=== PATIENT | female | born 1980 | race Caucasian/White ===

== ENCOUNTER 2018-01-11 08:54 | Outpatient (RCR) | payer OTHER, SELFPAY ==
--- NOTE | 2018-01-11 18:39 | MASS.EVAL ---
Massage Therapy Evaluation: Initial Evaluation Date: 01/11/2018 SUBJECTIVE: Roxie is a 37 year old female who was referred to the [facility] facility for a massotherapy evaluation by Dr. Jatin Smith with the diagnosis of neck and low back pain. Roxie presents today with the symptoms of neck and upper back pain and tension. She also has muscle tension in her low back, left thigh and hips. Roxie reports having a medical history chronic low back pain. She reports having minimal limitations during her daily activities. OBJECTIVE: Upon observation Roxie has poor posture with her head forward and shoulders forward from the neutral position in sitting and standing. After examination and palpation I found Roxie to have very high muscle tension with tenderness and myofascial restrictions in her sub occipitals, trapezius, rhomboids, scalenes, thoracic paraspinals. Her hips, left quadriceps, left ITB and lumbar region were also tight. The first treatment consisted of a one hour massage to her full body with myofascial release, muscle stripping, trigger point compression techniques, and cervical manual traction. ASSESSMENT: I feel that Roxie is a good candidate for massotherapy at this time. She had a favorable response to the first treatment with reduction in her muscle aches, pain and tension. She also had improvement in her cervical flexibility. PLAN: The plan of care was reviewed with the patient. The patient is to be seen on as needed basis for a total of ten sessions with the recommendation of once every four weeks for a one hour treatment.
--- NOTE | 2018-08-20 15:52 | DS.PCM_ITS ---
Massage Therapy Discharge Summary: Discharge Date: 08/20/2018 Roxie was seen for a massotherapy evaluation on 01/11/2018 with the diagnosis of back and neck pain. She was treated with one session of massage therapy consisting of deep pressure soft tissue techniques, myofascial release and trigger point compression to her cervical, thoracic, lower back, upper extremities and hips. Roxie responded well to the therapy by reporting decreased tension and pain throughout her neck, shoulders, lower back and hips. Her goals for therapy were not met due to no follow up treatment sessions performed. At this time this patient is being discharged from our care at [facility] facility.
== END 2018-01-11 19:00 | disposition home or self-care (01) ==
LOC: MASS 08:54
PROVIDERS: Family Provider Family Medicine; PCP Family Medicine; Visit Provider Family Medicine
DX: M54.9 Dorsalgia, unspecified (principal); G89.29 Other chronic pain
CPT/HCPCS: 97124

== ENCOUNTER → 2019-02-26 17:17 | Outpatient (CLI) | payer OTHER, SELFPAY ==
[2019-02-26 10:34] VITALS: BMI 23.6
[2019-03-22 11:57] LABS: HPV APTIMA, High Risk Negative (Negative)
== END ==
PROVIDERS: Family Provider Family Medicine; PCP Family Medicine; Referring Provider Obstetrics & Gynecology; Visit Provider Obstetrics & Gynecology
DX: Z12.4 Encounter for screening for malignant neoplasm of cervix (principal)
CPT/HCPCS: 87624; 88175; G0145

== ENCOUNTER 2019-02-28 08:03 | Day surgery (SDC) | payer OTHER, SELFPAY ==
[2019-02-26 10:34] VITALS: BMI 23.6
--- NOTE | 2019-02-28 07:32 | PCM.HPOB.BLA ---
- Problem List (1) Missed Status: Acute History and Physical Date of Admission: 02/28/19 Intake Vital Signs 02/26/19 Body Mass Index (BMI) 23.6 02/26/19 Height 5 ft 9 in 02/26/19 Blood Pressure 102/70 Intake Visit Reasons: NOB - LMP 12/17 Chief Complaint: NEW OB Solution Advisor Required: No Is patient in pain?: No Allergies No Known Allergies Allergy (Verified 02/26/19 09:57) Medications omega-3 fatty acids 1,000 mg capsule 1,000 mg PO DAILY 02/26/19 [History Confirmed 02/26/19] vitamin#30 30 mg iron-10 mg iron-folic acid 1 mg-omg3 capsule cap PO cap 02/26/19 [History] Last Menstral Period: 12/17/18 Zika: Zika virus screening: Negative : No PFSH PFSH Medical History (Updated 02/26/19 @ 10:40 by Keturah Vega MD) Anxiety (Acute) History of abnormal cervical Pap smear (Acute) Surgical History (Updated 02/26/19 @ 09:59 by Tasha Ordonez) H/O LEEP (Acute) History of placement of ear tubes (Acute) Family History (Updated 02/26/19 @ 09:59 by Tasha Ordonez) Mother Cancer of kidney Social History (Updated 02/26/19 @ 11:42 by Keturah Vega MD) Smoking Status: Former smoker alcohol intake: never substance use type: does not use caffeine: Yes what type of physical activity do you participate in: walking seatbelt use: always do you feel safe at home: Yes additional social history: Lyle Lam 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 upon examination she has a confirmed 9 week miscarriage. she denies any bleeding or cramping. OB Visit Comments: ultrasound done CRL measuring 9 weeks no FHT seen. miscarriage confirmed. Estimated Due Date: 09/23/19 Menstrual History Last Menstral Period: 12/17/18 Reported LMP: definite Normal amount/duration: Yes On hormonal BC at conception: No hCG+: 01/18/19 Antepartum Record Genetic Screening: Congenital Heart Defect: Other, Neural Tube Defect: Other, Hemoglobinopathy Or Carrier: Other, Cystic Fibrosis: Other, Chromosome Abnormality: Other, Ricky-Sachs: Other, Hemophilia: Other, Intellectual Disability/Autism: Other, Recurrent Loss/Stillbirth: Other, Other Structural Defect: Other, Other Genetic Disease: Other, Maternal Metabolic Disorder: Other Infection History: Live with someone with TB or Exposed to TB: No, Patient or Partner has history of Genital Herpes: Yes, Rash or Viral illness since last mentrual period: No, Prior GBS-Infected child: No, History of STD: No, HIV Infection: No, History of Hepatitis: No, Recent travel outside of [place]: No, Concern for Hep exposure: No, Varicella immune: Yes Medical History Medical History: Positive: Psychiatric, Seasonal allergies, 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), History of abnormal pap (yes), Negative: Diabetes, Hypertension, Heart disease, Auto-immune disorder, Kidney disease/UTI, Neurologic/epilepsy, Depression/ depression, Hepatitis/liver disease, Varicosities/phlebitis, Thyroid dysfunction, Trauma/domestic violence, History of blood transfusions, D (Rh) Sensitized, Pulmonary (e.g.,TB,Asthma), Drug/latex allergies/reactions, Breast, Operations/hospitalizations, Anesthetic complications, Uterine anomaly/odin, Infertility, Anti-retroviral treatment, Relevant family history, Other ACOG First Trimester First Trimester: Desire for , Alcohol, Tobacco Cessation, Illicit/Recreational Drug/Substance Use, Intimate Partner Violence, Barriers to care, Unstable Housing, Communication Barriers, Environmental/Work Hazards, Anticipated Course of Care, Nurtrition and weight gain, Toxoplasmosis Precations, Use of Any medications, Sexual activity, Exercise, Dental Care, Sauna/Hot tub use, Seat Belt use, Childbirth classes/Hospital facilities, , Travel, Indications for US and Screening for Aneuploidy ROS Const Reports system reviewed and no additional complaints, except as docu, Reports fatigue, Denies fever(s) Eyes Reports system reviewed and no additional complaints, except as docu ENT Reports system reviewed and no additional complaints, except as docu Card Denies chest pain, Denies shortness of breath Resp Reports system reviewed and no additional complaints, except as docu, Denies cough, Denies shortness of breath GI Denies abdominal pain, Reports nausea Reports system reviewed and no additional complaints, except as docu Musc Reports system reviewed and no additional complaints, except as docu Skin/Breast Reports system reviewed and no additional complaints, except as docu, Reports breast pain Neuro Yes system reviewed and no additional complaints, except as docu Psych Reports system reviewed and no additional complaints, except as docu Endo Reports system reviewed and no additional complaints, except as docu, Reports fatigue Everardo/Lymph Reports system reviewed and no additional complaints, except as docu Aller/Immun Reports system reviewed and no additional complaints, except as docu Exam Const General: healthy appearing, comfortable, no acute distress Orientation: alert [facility] Head: normal to inspection, normocephalic, atraumatic Ears: hearing grossly normal bilaterally, external ears normal Nose: external nose normal, nares normal Mouth: oral mucosae normal Teeth and gingiva: dentition normal Eyes General: appearance normal, both eyes and all related structures Neck Neck: normal visual inspection, no lymphadenopathy, supple Thyroid: thyroid normal Chest Chest palpation & inspection: normal inspection of the chest Breast inspection: normal inspection of the breasts, normal inspection of the axillae Breast palpation: normal palpation of the breasts, normal palpation of the axillae Resp Effort & Inspection: normal respiratory effort GI Inspection: normal to inspection Palpation: soft, no hepatosplenomegaly General: bladder normal to palpation External Female Exam: normal external appearance, normal appearance of the urethra Urethra: normal appearance of the urethra Speculum Exam - Vagina: normal appearance of the vagina, normal vaginal discharge Speculum Exam - Cervix: normal appearance of the cervix Bimanual Exam- Vagina & Uterus: normal bimanual exam, bladder normal to palpation, uterus non-tender, other Bimanual Exam- Adnexa, other: adnexae non-tender Skin General: no rashes or lesions noted Neuro Motor: muscle tone normal throughout, no movement abnormalities noted Extrem General: normal to inspection, full ROM Assessment & Plan Problems 1. Herpes simplex vulvovaginitis A60.04 Acyclovir at 36 weeks 2. Mother currently breast-feeding 3. 10 weeks gestation of Z3A.10 declines genetic, carrier and NTD at this time 4. Multigravida of advanced maternal age in first trimester O09.521 genetic counseling discussed- growth US at 36 weeks 5. Supervision of high risk , antepartum O09.90 DARYN 09/23/19 PC Vera Spouse Chad (2 children) 6. History of loop electrosurgical excision procedure (LEEP) of cervix affecting in first trimester O34.41; Z98.890 term delivery afterwards, discussed CL screening- desires check only at routine anatomy scan. 7. Cervical dysplasia N87.9 8. Missed O02.1 Plan proceed with suction d and c. will schedule. Orders Orders: Antibody Screen Today Z34.90 Type & Screen Today Z34.90 HIV - [facility] Today Z34.90 Rubella IgG Today Z34.90 CBC W/Diff, Automated Today Z34.90 Culture, Urine Today Z34.90 CT/NG [facility] BY PCR Today Z34.90 Rapid Plasmin Reagin (RPR) Today Z34.90 Hepatitis Be Ag Today Z34.90 Supplemental Info ACOG book given and patient encouraged to read about nutrition, exercise, weight gain, and food avoidance in . Coding Level of Care Code OB Routine Diagnoses Herpes simplex vulvovaginitis A60.04 ??Herpes simplex infection site: vulvovaginitis Mother currently breast-feeding 10 weeks gestation of Z3A.10 ??Weeks of gestation: 10 weeks Multigravida of advanced maternal age in first trimester O09.521 ??Trimester: first trimester Supervision of high risk , antepartum O09.90 History of loop electrosurgical excision procedure (LEEP) of cervix affecting in first trimester O34.41; Z98.890 ??Trimester: first trimester Cervical dysplasia N87.9 Missed O02.1 UPDATE- I have seen the patient and performed any clinically relevant updates to the history and physical exam. Keturah Vega MD
[2019-02-28 08:23] VITALS: BP 104/59; PULSE 68; RESP 14; TEMP 36.4; O2SAT 99; BMI 24.2
[2019-02-28] MEDS: Doxycycline 100 MG CAPSULE PO (08:33)
[2019-02-28 08:36] LABS: Hematocrit 35.5 % (37-47); Mean Corp Hgb Conc 33.8 g/gl (32-36); Mean Corpuscular Volume 85.7 fL (81-99); Mean Platelet Vol. 10.4 fl (6.2-12.0); Platelet Count 222 K/mm3 (150-450); RBC Distribution Width CV 12.8 % (11.6-14.6); RBC Distribution Width SD 40.3 fl (35.1-43.9); Red Blood Count 4.14 M/mm3 (4.2-5.4); White Blood Count 5.3 K/mm3 (4.4-11.0)
[2019-02-28 08:38] LABS: Scan Indicated on CBC? Y/N NO
--- NOTE | 2019-02-28 09:30 | POC_PTH ---
PATIENT: MILLY DICKERSON LOC: [facility] U#:[id number] AGE/SX: 38/F ROOM: RE02/28/[address]: Dr. Keturah Vega MD : 1980 BED: DIS: 02/28/2019 SPEC #: [id number] RECD: 02/28/19 11:17 STATUS: MILTON ADEN #: [id number] SAEED: 02/28/19 09:[address]: Keturah Vega DEPT: SURGICAL PATHOLOGY RECD BY: Jackson Sexton ENTERED: 02/28/19 11:34 SP TYPE: PROD CONC OTHR DR: Dr. Jatin Smith, Tissues: Product of conception, NOS Procedures: Surgery Specimen Level IV HEADER OPERATION: dilation and curettage, suction PRE-OP DIAGNOSIS: Missed TISSUE SUBMITTED: Products of conception MICROSCOPIC DIAGNOSIS Products of conception: Immature, edematous chorionic villi, decidual tissue with implantation site and gestational pattern endometrium present, compatible with products of conception. CE:edith 03/01/19 MICROSCOPIC DESCRIPTION Slides are reviewed. GROSS DESCRIPTION Received in fixative is one container labeled with the patient's name and designated products of conception. The specimen consists of multiple pinkish-taylor soft tissue fragments mixed with membranous tissue that in aggregate measure 3 x 2 x 0.9 cm. No fetus or parts are grossly identified. Laboratory Equipment Installer sections are submitted in three cassettes. / FA:edith 02/28/19 TC:5 CPT: 25778
--- NOTE | 2019-02-28 10:27 | PCM.OPRPT ---
Problem List (1) Missed Status: Acute Report of Operation Date of Procedure: 02/28/19 Pre-Operative Diagnosis: Missed AB 10 weeks Post-Operative Diagnosis: same Surgery/Procedure Performed:: Suction D&C Description of Surgical Findings:: 9-week size pole with no heartbeat 10 weeks gestational age clinically by LMP Type of Anesthesia:: Local MAC Special Medications: none Specimen's removed: Products of conception Drains: none Estimated Blood Loss (mL): 50 Fluids Replaced: Crystalloid Description of Procedure: Patient was taken to the operating room and placed under MAC local anesthesia. She was prepped and draped in the normal sterile fashion the dorsal lithotomy position. Bladder was drained of clear urine and anterior lip of the cervix was grasped and the uterus sounded to 8 cm. Cervix was progressively dilated to allow passage of an 8 millimeter suction curette. Progressive passes were made removing the retained products of conception without complication. Sharp curettage confirmed complete removal of the retained products. All instruments were removed from the vagina and excellent hemostasis was noted and the patient was taken to recovery in stable condition. Grafts/Implants Used: none - Complications none
--- NOTE | 2019-02-28 10:29 | DCINST_ITS ---
Discharge Diet: No Restrictions Discharge Activity: Return to Normal Activity, May Shower, May Take a Tub Bath Allergies/Adverse Reactions: Allergies No Known Allergies Allergy (Verified 02/27/19 14:51) Medications to take at Discharge omega-3 fatty acids 1,000 mg capsule 1,000 mg PO DAILY 02/26/19 vitamin#30 30 mg iron-10 mg iron-folic acid 1 mg-omg3 capsule 1 cap PO DAILY cap 02/26/19 Primary Care Physician: Jatin Smith DO [Primary Care Provider] - Test Results: Test results from this visit will be discussed in further detail at your follow- up appointment, if applicable. Please Follow Up With: Keturah Vega MD - [phone]
[2019-02-28 10:35] VITALS: BP 104/59; BP 87/54; PULSE 68; RESP 16; TEMP 36.4; O2SAT 99
[2019-02-28 10:40] VITALS: BP 104/59; BP 97/53; PULSE 61; RESP 16; O2SAT 97
[2019-02-28 10:46] VITALS: BP 104/59; BP 87/50; PULSE 63; RESP 16; O2SAT 96
[2019-02-28 10:50] VITALS: BP 104/59; BP 87/57; PULSE 59; RESP 16; O2SAT 97
[2019-02-28 11:33] VITALS: BP 104/59
== END 2019-02-28 11:38 | disposition home or self-care (01) ==
LOC: SDC 08:04 → AC 08:04
PROVIDERS: Family Provider Family Medicine; PCP Family Medicine; Referring Provider Obstetrics & Gynecology; Visit Provider Obstetrics & Gynecology
PROC: (CPT 59820; principal; 2019-02-28 09:15)
DX: O02.1 Missed abortion (principal); A60.04 Herpesviral vulvovaginitis; Z3A.10 10 weeks gestation of pregnancy; N87.9 Dysplasia of cervix uteri, unspecified; Z98.890 Other specified postprocedural states; Z87.891 Personal history of nicotine dependence
CPT/HCPCS: 59820; 36415; 85027; 86850; 86900; 88305; J7120; J2405

== ENCOUNTER → 2019-05-15 | Outpatient (CLI) | payer OTHER, SELFPAY ==
[2019-03-26 12:00] VITALS: BMI 24.2
--- NOTE | 2019-05-15 14:02 | VDLE_ITS ---
Reason For Study: PAIN/ SWELLING Procedure LEFT Exam performed in department. GSV is normal. A preliminary report was called and/or faxed CFV is compressible, spontaneous, phasic, to Dr Smith. competent, and demonstrates normal augmentation. FV is compressible, spontaneous, phasic, competent and demonstrates normal augmentation. POP V is compressible, spontaneous, phasic, competent and demonstrates normal augmentation. T/P Trunk is compressible. PTV is compressible. LT PerV is compressible. There is a nonvascularized echogenic structure measuring 3.78 x 1.9 cm noted in the Popliteal space extending to the posterior proximal calf. Interpretation Summary Deep veins of the left lower extremity are patent and compressible segmentally. There is no evidence of left lower extremity deep vein thrombosis. Valvular competence appears intact within the proximal deep venous system on the left . The left great saphenous vein appears patent and compressible segmentally. Mildly enlarged lymph nodes are noted near the left groin, for which clinical correlation is advised. A non-vascular, hypoechoic structure is noted in the left popliteal space and proximal posterior calf, measuring 3.78 cm x 1.9 cm. This may represent a popliteal cyst. Clinical correlation is advised. Ordering Physician: Jatin Smith Referring Physician: Jatin Smith Performed By: Dior Schrader, RDCS, RVT
== END | disposition home or self-care (01) ==
LOC: CVS 14:01
PROVIDERS: Family Provider Family Medicine; PCP Family Medicine; Referring Provider Family Medicine; Visit Provider Family Medicine
DX: M79.605 Pain in left leg (principal)
CPT/HCPCS: 93971

== ENCOUNTER → 2019-06-04 | Outpatient (CLI) | payer OTHER, SELFPAY ==
[2019-03-26 12:00] VITALS: BMI 24.2
--- NOTE | 2019-06-04 11:30 | MRI_ITS ---
STUDY: MRI LEFT KNEE REASON FOR EXAM: Female, 39 years old. Knee pain and swelling TECHNIQUE: Standardized fat and water weighted pulse sequences were obtained in all 3 orthogonal planes. COMPARISON: None. FINDINGS: Normal medial meniscus. Normal hyaline cartilage of the medial femorotibial compartment. Normal medial femoral condyle and tibial plateau. Normal medial collateral ligamentous complex (MCL). Normal distal semimembranosus, gracilis and semitendinosus tendons. Normal lateral meniscus. Normal hyaline cartilage of the lateral femorotibial compartment. Normal lateral femoral condyle and tibial plateau. Normal proximal tibiofibular articulation. Normal lateral collateral (fibular) ligament. Normal popliteus tendon. Normal biceps femoris tendon. Normal anterior cruciate ligament (ACL). Normal posterior cruciate ligament (PCL). Normal congruent patellofemoral articulation. Normal hyaline cartilage of the patellofemoral compartment. Normal medial and lateral patellar retinaculum. Normal quadriceps tendon. Normal patellar tendon. Normal Hoffa's fat pad. There is a moderate volume joint effusion. 3 x 6 cm Madrigal cyst. The soft tissues are unremarkable. The otherwise visualized osseous structures are unremarkable. MRI/Lower Ext Joint Only (Routine) IMPRESSION: Moderate joint effusion with a large Madrigal's cyst but no internal derangement. Specifically, no meniscus tear. Electronically Signed: Tomer Tracy MD at 16:43 EDT Tel , Service support ,
== END | disposition home or self-care (01) ==
LOC: MRI 11:06
PROVIDERS: Family Provider Family Medicine; PCP Family Medicine; Referring Provider Family Medicine; Visit Provider Family Medicine
DX: M25.462 Effusion, left knee (principal); M25.562 Pain in left knee
CPT/HCPCS: 73721

== ENCOUNTER 2019-07-16 09:30 | Outpatient (RCR) | payer OTHER, SELFPAY ==
[2019-03-26 12:00] VITALS: BMI 24.2
--- NOTE | 2019-07-05 12:43 | HP.PTEVAL ---
Patient's Visit Information MILLY DICKERSON is a 39 year old F referred to Physical Therapy by Jatin Smith DO with a diagnosis of L knee pain. Date of Evaluation: 06/14/19 Physical Therapist: Modesto Hankins DPT - Visit Plan Frequency: 2x /Week Duration: 4-6 Weeks Plan: Start with US to popliteal region, quad/HS strengthening as tolerated. Progess back to gym exercises as tolerated. - Subjective Findings: Pt. is here today for her initial evaluation with diagnosis of of L knee pain. Pt. reports having incrased L knee joe or ~4 months now, but was getting better until moving wrong and started having pain again. Pt. did have an MRI which showed no meniscus tearing, but did have a large coker's cyst. Pt. reports having increased pain with walking, standing and any bending, squating motions. Pt. is able tosleep fairly comfortable. Pt. is going to follow up with an orhopedic next week. She denies N/T in either LE. Pt. reports no constant pain, but comes and goes and does have some days that are decent. 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 Pt. is hopeful to reduce her symptoms to get back to all recreational and work activities witout increase in symptoms. - Pain L knee Pain Intensity (Out of 10): 2 Pain Intensity Range: 0, 6 Comment: popliteal region - Objective POSTURE: Pt. has good posture in stance. Pt. has TKE in bilateral LEs with equal wt. shifting. SHe does have some increasein pain with L TKE. PALPATION: Pt. has increased pain at posterior/medial aspect of her L knee. Pt. has no pain along HS tendon/muscle belly. Pt. has marked edema in LLE (popliteal region). NEURO: normal throughout. ROM: R knee 0-0-140deg. L knee 0-0-128deg increased pain with end range flexion and extension. Pt. has normal HS and hip flexor length. MMT: RLE- 5/5 throughout. LLE- ankle 5/5 throughout; knee- ext 5-/5, flexion 4+/5, hip- 5/5 throughout. Core strength- fair. GAIT: Pt. ambulates with normal pattern, patient avoid TKE on LLE. STAIRS: normal no HR. - Special Tests L Knee Paula - Meniscus: Negative L Knee Apley - Meniscus: Negative L Knee Disco Test - Meniscus: Negative L Knee Anterior Drawer - ACL: Negative L Knee Valgus - MCL: Negative L Knee Varus - LCL: Negative - Goals Goal 1:: Pt. to be I with HEP. Goal Time Frame: 4-6 Weeks Goal 2:: Pt. to have full L knee ROM withotu increase in symptoms. Goal Time Frame: 4-6 Weeks Goal 3:: Pt. to ambulate unlimited distances without increase in symptoms. Goal Time Frame: 4-6 Weeks Goal 4:: Pt. to negotiate steps without increase in symptoms with reciprocal pattern. Goal Time Frame: 4-6 Weeks Goal 5:: Pt. to have 5/5 LLE strength without increase in symptoms. Goal Time Frame: 4-6 Weeks Goal 6:: Pt. to resume all gym and work activities without increase in symptoms. Goal Time Frame: 4-6 Weeks - Rehabilitation Potential Physical Therapy Diagnosis: Pt. has signs and symptoms consistent with L knee pain. Pt. has imaging showing large coker's cyst. Pt. would benefit from PT to reduce inflammation Rehabilitation Potential: Excellent - Anticipated Interventions Patient/Client Instruction: Educate patient on: Condition, Plan of Care, Risk Factors, Benefits of Fitness Program For the Purpose of:: To facilitate caregiver knowledge, To improve self management, To prevent re-injury, To improve ability to perform tasks related to life management, To improve tolerance to ADL's Therapeutic Exercise to Include: Strength training, Power training, Postural training, Flexibilty training, Passive ROM, Active ROM For the Purpose of:: To decrease pain, To increase ROM, To improve nutrient delivery to tissue, To increase oxygenation perfusion, To improve muscle performance and motor function, To improve ability to perform ADL's, To improve health of tissue, To decrease soft tissue restriction, To increase flexibility/ROM, To improve endurance Manual Therapy Techniques to Include: Mobilization, Functional dry needling, Soft tissue mobilization For the Purpose of:: To decrease pain, To decrease swelling/inflammation, To increase ROM, To improve nutrient delivery to tissue, To increase oxygenation perfusion, To improve muscle performance and motor function Ultrasound (thermal/non thermal): Yes For the Purpose of:: To decrease pain, To increase ROM, To improve nutrient delivery to tissue, To improve muscle performance and motor function Thank you for the opportunity to evaluate your patient. For Medicare and Medicare HMO plans, please review the plan of care and approve it. It will need to be FAXED BACK to us at [phone] for Medicare purposes. For Medicare only, by signing this I certify the plan of care. Please let me know if there are questions or concerns regarding this plan of care. Physician Signature: Date:
--- NOTE | 2019-12-24 08:48 | HP.PT.NRP ---
MILLY DICKERSON was seen in my office for initial evaluation on 06/14/19. The following Plan of Care was established for this patient: Initial Frequency: 2x /Week Initial Duration: 4-6 Weeks Patient/Client Instruction: Educate patient on: Condition, Plan of Care, Risk Factors, Benefits of Fitness Program For the Purpose of:: To facilitate caregiver knowledge, To improve self management, To prevent re-injury, To improve ability to perform tasks related to life management, To improve tolerance to ADL's Therapeutic Exercise to Include: Strength training, Power training, Postural training, Flexibilty training, Passive ROM, Active ROM For the Purpose of:: To decrease pain, To increase ROM, To improve nutrient delivery to tissue, To increase oxygenation perfusion, To improve muscle performance and motor function, To improve ability to perform ADL's, To improve health of tissue, To decrease soft tissue restriction, To increase flexibility/ROM, To improve endurance Manual Therapy Techniques to Include: Mobilization, Functional dry needling, Soft tissue mobilization For the Purpose of:: To decrease pain, To decrease swelling/inflammation, To increase ROM, To improve nutrient delivery to tissue, To increase oxygenation perfusion, To improve muscle performance and motor function Ultrasound (thermal/non thermal): Yes For the Purpose of:: To decrease pain, To increase ROM, To improve nutrient delivery to tissue, To improve muscle performance and motor function This patient was last seen in our office 07/16/19. Pertinent comments regarding their Physical therapy will appear below: Pt. was seen for her knee pain. Pt. tolerated US and stretcing. Pt. was back to most of her exercises and work classes with minimal issues. I talked to her and she did cont. to have some tightness in the back of her knee, but no pain. Pt. will be DC from PT at this point in time. At this point I will be discontinuing this patient from physical therapy. I would be happy to see this patient again in the future if found appropriate by the physician. Thank you! Modesto Hankins, KEITHT
== END 2019-07-16 19:00 | disposition home or self-care (01) ==
LOC: PT 09:30
PROVIDERS: Family Provider Family Medicine; PCP Family Medicine; Referring Provider Family Medicine; Visit Provider Family Medicine
DX: M25.462 Effusion, left knee (principal); M79.605 Pain in left leg
CPT/HCPCS: 97035; 97110; 97161

== ENCOUNTER 2019-08-26 19:45 | Outpatient (RCR) | payer OTHER, SELFPAY ==
--- NOTE | 2018-10-05 07:42 | MASS.EVAL ---
Massage Therapy Evaluation: INITIAL EVALUATION: DATE: 09/17/18 PT NAME: MILLY DICKERSON : 1980 V#: [id number] REFERRING PHYS: DR. 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 SHE WAS REFERRED TO [facility] FOR A MASSOTHERAPY EVALUATION BY DR. GARRISON WITH A DIAGNOSIS OF NECK AND BACK PAIN. SHE PRESENTS TODAY WITH THE SYMPTOMS OF LEFT HIP PAIN AND TENSION IN THE NECK AND SHOULDERS. THE HIP PAIN HAD BEEN PRESENT FOR A WEEK. THE SYMPTOMS COMMENCED DUE TO TEACHING CLASSES, SHE COULD FEEL HER BACK GO OUT POST A CLASS. MILLY RATES HER OVERALL HEALTH TO BE IN GREAT CONDITION WITH A SLIGHT LIMITATION TO HER DAILY ACTIVITIES. MILLY DID NOT LIST ANY MEDICATIONS AT THIS TIME. OBJECTIVE: THE FIRST TREATMENT CONSISTED OF A DEEP TISSUE, UPPER BODY MASSAGE. I FOCUSED ON UPPER TRAPEZIUM, LEVATOR, SUBOCCIPITALS,RHOMBOIDS, SCALENES, QL'S, GLUTES, IT BAND, AND HAMSTRINGS. TRIGGER POINT THERAPY WAS PERFORMED ALONG WITH DEEP TISSUE AND CAMEROONIAN MASSAGE. ASSESSMENT: THE MUSCLE TENSION WAS HIGH IN THE NECK AND LOW BACK. LEFT SIDE SEEMED WORSE THAN THE RIGHT SIDE. THE MOST TENDERNESS PLACES WERE THE LEFT QL'S, LEFT GLUTEUS MEDIUS, LEFT IT BAND, AND RIGHT SCALENES. OVERALL, I FELT THERE WAS GOOD RELEASE IN THE LEFT HIP AND STRESS LEVEL. THE PATIENT REPORTED FEELING LESS PAIN IN HIP POST THE MASSAGE. I FEEL MILLY IS A GREAT CANDIDATE FOR MASSOTHERAPY AT THIS TIME. PLAN: THE PLAN OF CARE WAS REVIEWED WITH THE PATIENT. THE PATIENT IS TO BE SEEN ON A MONTHLY BASIS FOR A TOTAL OF 10 VISITS FOR A ONE HOUR SESSIONS OF MASSOTHERAPY.
--- NOTE | 2018-10-05 07:54 | MASS.EVAL_ITS ---
Massage Therapy Evaluation: INITIAL EVALUATION: DATE: 09/17/18 PT NAME: MILLY DICKERSON : 1980 V#: [id number] REFERRING PHYS: DR. 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 SHE WAS REFERRED TO [facility] FOR A MASSOTHERAPY EVALUATION BY DR. GARRISON WITH A DIAGNOSIS OF NECK AND BACK PAIN. SHE PRESENTS TODAY WITH THE SYMPTOMS OF LEFT HIP PAIN AND TENSION IN THE NECK AND SHOULDERS. THE HIP PAIN HAD BEEN PRESENT FOR A WEEK. THE SYMPTOMS COMMENCED DUE TO TEACHING CLASSES, SHE COULD FEEL HER BACK GO OUT POST A CLASS. MILLY RATES HER OVERALL HEALTH TO BE IN GREAT CONDITION WITH A SLIGHT LIMITATION TO HER DAILY ACTIVITIES. MILLY DID NOT LIST ANY MEDICATIONS AT THIS TIME. OBJECTIVE: THE FIRST TREATMENT CONSISTED OF A DEEP TISSUE, UPPER BODY MASSAGE. I FOCUSED ON UPPER TRAPEZIUM, LEVATOR, SUBOCCIPITALS,RHOMBOIDS, SCALENES, QL'S, GLUTES, IT BAND, AND HAMSTRINGS. TRIGGER POINT THERAPY WAS PERFORMED ALONG WITH DEEP TISSUE AND SLOVAK MASSAGE. ASSESSMENT: THE MUSCLE TENSION WAS HIGH IN THE NECK AND LOW BACK. LEFT SIDE SEEMED WORSE THAN THE RIGHT SIDE. THE MOST TENDERNESS PLACES WERE THE LEFT QL'S, LEFT GLUTEUS MEDIUS, LEFT IT BAND, AND RIGHT SCALENES. OVERALL, I FELT THERE WAS GOOD RELEASE IN THE LEFT HIP AND STRESS LEVEL. THE PATIENT REPORTED FEELING LESS PAIN IN HIP POST THE MASSAGE. I FEEL MILLY IS A GREAT CANDIDATE FOR MASSOTHERAPY AT THIS TIME. PLAN: THE PLAN OF CARE WAS REVIEWED WITH THE PATIENT. THE PATIENT IS TO BE SEEN ON A MONTHLY BASIS FOR A TOTAL OF 10 VISITS FOR A ONE HOUR SESSIONS OF MASSOTHERAPY.
--- NOTE | 2019-08-29 06:57 | MASS.DISCH ---
Massage Therapy Discharge Summary: DATE: 08/29/2019 V#: [id number] PT NAME: MILLY DICKERSON : 1980 REF PHYS: DR. GARRISON THE PATIENT WAS SEEN FOR MASSOTHERAPY EVALUATION ON 09/17/2018 WITH A DIAGNOSIS OF BACK AND NECK PAIN. THE PATIENT WAS TREATED WITH 10 SESSIONS OF MASSAGE CONSISTING OF UPPER BODY DEEP TISSUE MASSAGE. HER GOALS OF TREATMENT WERE MET AND SHE REPORTED STAYING HEALTHY THIS YEAR WITH 10 SESSIONS OF MASSAGE THERAPY. AT THIS TIME I AM DISCHARGING THE PATIENT FROM OUR CARE AT THE [facility].
== END 2019-08-26 19:46 | disposition home or self-care (01) ==
LOC: MASS 19:45
PROVIDERS: Family Provider Family Medicine; PCP Family Medicine; Referring Provider Family Medicine; Visit Provider Family Medicine
DX: M54.9 Dorsalgia, unspecified (principal); G89.29 Other chronic pain
CPT/HCPCS: 97124

== ENCOUNTER → 2020-05-07 16:43 | Outpatient (CLI) | payer OTHER, SELFPAY ==
[2020-05-07 09:25] VITALS: BMI 24.2
[2020-05-11 03:07] LABS: Chlamydia By Nucleic Acid AMP Negative (Negative)
[2020-05-11 07:54] LABS: Gonococcus By Nucleic Acid AMP Negative (Negative)
[2020-05-14 05:34] LABS: HPV APTIMA, High Risk Negative (Negative)
== END ==
PROVIDERS: PCP Family Medicine; Visit Provider Obstetrics & Gynecology
DX: Z12.4 Encounter for screening for malignant neoplasm of cervix (principal)
CPT/HCPCS: 87491; 87591; 87624; 88175; G0145

== ENCOUNTER → 2020-05-19 15:38 | Outpatient (CLI) | payer OTHER, SELFPAY ==
[2020-05-07 09:25] VITALS: BMI 24.2
[2020-05-19 16:49] LABS: Basophil# 0.03 X10^3/uL; Basophil% 0.4 % (0-1); Eosinophils% 1.2 % (0-5); Hematocrit 35.1 % (37-47); Hemoglobin 11.7 g/dL (12.0-15.0); Lymphocyte % 23.5 % (19-41); Mean Corp Hgb Conc 33.3 g/dL (32-36); Monocyte# 0.36 X10^3/uL; Monocyte% 4.2 % (0-10); NRBC Flagged by Analyzer 0 % (0-5); Neutrophil # 5.98 X10^3/uL (2.7-7.7); Neutrophil % 70.2 % (47-70); Platelet Count 272 K/mm3 (150-450); RBC Distribution Width CV 12.2 % (11.6-14.6); White Blood Count 8.5 K/mm3 (4.4-11.0)
[2020-05-19 16:52] LABS: NATERA MAILED SPECIMEN
[2020-05-19 17:00] LABS: Amphetamine Urine VISTA NEGATIVE (<1000 ng/mL); Barbiturate Urine VISTA NEGATIVE (< 200 ng/mL); Benzodiazepine Urine VISTA NEGATIVE (< 200 ng/mL); Cocaine Urine VISTA NEGATIVE (< 300 ng/mL); Ecstacy Urine VISTA NEGATIVE (< 500 ng/mL); Methadone Urine VISTA NEGATIVE (< 300 ng/mL); PCP Urine VISTA NEGATIVE (< 25 ng/mL); THC Urine VISTA NEGATIVE (< 50 ng/mL); Vista UDS pH Range 6
[2020-05-20 09:17] LABS: HIV - WCH Non-Reactive (Nonreactive); Hepatitis B Surface Antigen Non-Reactive (Nonreactive); Hepatitis C Antibody Non-Reactive (Nonreactive); Rubella IgG > 500.0 IU/mL
[2020-05-21 04:31] LABS: Rapid Plasmin Reagin (RPR) NONREACTIVE (NONREACTIVE)
== END ==
PROVIDERS: PCP Family Medicine; Referring Provider Obstetrics & Gynecology; Visit Provider Obstetrics & Gynecology
DX: Z34.90 Encounter for supervision of normal pregnancy, unspecified, unspecified trimester (principal)
CPT/HCPCS: 36415; 80307; 85025; 86592; 86703; 86762; 86803; 86850; 86900; 86901; 87086; 87088; 87340

== ENCOUNTER → 2020-07-23 15:16 | Outpatient (CLI) | payer OTHER, SELFPAY ==
[2020-06-04 11:03] VITALS: BMI 24.2
[2020-06-30 11:43] VITALS: BMI 25.2
--- NOTE | 2020-07-23 15:24 | US_ITS ---
STUDY: SECOND AND THIRD TRIMESTER OBSTETRICAL ULTRASOUND REASON FOR EXAM: Female, 40 years old ANATOMY SCREENING LMP: TECHNIQUE: Transabdominal TECHNICAL QUALITY: Adequate. PRIOR ULTRASOUND: None. FINDINGS: There is a single intrauterine fetus. The fetus is in a breech presentation. There is demonstrated cardiac activity with a heart rate of 151 bpm. There is a normal amniotic fluid volume. The largest amniotic fluid pocket measures 5.2 cm.. The placenta is anterior and not low-lying There are Grade 0 placental changes. The cervix measures 4.1 cm in length. The bilateral adnexal regions are normal. BIOMETRY: BPD: 4.39 cm: 19 weeks, 1 days HC: 16.8 cm: 19 weeks, 3 days AC: 14.65 cm: 19 weeks, 6 days FL: 3.04 cm: 19 weeks, 2 days CI: 0.74 FL/BPD: 0.69 FL/HC: FL/AC: 0.21 HC/AC: 1.15 age by current US: 19 weeks, 2 days. DARYN by current US: 12/15/2020. Estimated weight: grams, +/- grams, %. Age by LMP: 19 weeks, 5 days. DARYN by LMP: 12/12/2020. ANATOMY: Cranium: Normal lateral ventricles. Normal choroid plexus. Normal cerebellum. Normal cisterna magna. Normal face, nose and lips. Chest: Normal 4-chamber heart. Abdomen/Pelvis: Normal diaphragm. Normal stomach. Normal abdominal wall. Normal cord insertion. Normal 3 vessel cord. Normal kidneys. Normal bladder. Spine: Normal cervical spine. Normal thoracic spine. Normal lumbar spine. Normal sacrum. Extremities: Normal bilateral upper extremities. Normal bilateral lower extremities. US/OB Anatomy Scan IMPRESSION: Viable intrauterine gestation approximately 19-20 weeks gestational age. No significant abnormalities Electronically Signed: Jose Flynn MD at 23:00 EST , Service support ,
== END ==
LOC: OPUS 15:16 → US 15:19
PROVIDERS: PCP Family Medicine; Referring Provider Obstetrics & Gynecology; Visit Provider Obstetrics & Gynecology
DX: O09.90 Supervision of high risk pregnancy, unspecified, unspecified trimester (principal); Z3A.00 Weeks of gestation of pregnancy not specified
CPT/HCPCS: 76805

== ENCOUNTER → 2020-09-22 14:21 | Outpatient (CLI) | payer OTHER, SELFPAY ==
[2020-08-27 11:47] VITALS: BMI 26.3
[2020-09-22 15:41] LABS: Absolute Lymphocyte Count 1.39 X10^3/uL (0.83-4.51); Basophil# 0.04 X10^3/uL; Basophil% 0.5 % (0-1); Eosinophil# 0.05 X10^3/uL; Eosinophils% 0.6 % (0-5); Hematocrit 32.5 % (37-47); Hemoglobin 10.7 g/dL (12.0-15.0); Lymphocyte # 1.39 X10^3/ul (4.0); Lymphocyte % 17.7 % (19-41); Mean Corp Hgb Conc 32.9 g/dL (32-36); Mean Corpuscular Hgb 29.5 pg (27.0-32.0); Mean Corpuscular Volume 89.5 fL (81-99); Mean Platelet Vol. 10.8 fl (6.2-12.0); Monocyte% 3.8 % (0-10); NRBC Flagged by Analyzer 0 % (0-5); Neutrophil # 6.02 X10^3/uL (2.7-7.7); Neutrophil % 76.5 % (47-70); Platelet Count 233 K/mm3 (150-450); RBC Distribution Width CV 12.6 % (11.6-14.6); RBC Distribution Width SD 41.6 fl (35.1-43.9); Red Blood Count 3.63 M/mm3 (4.2-5.4); White Blood Count 7.9 K/mm3 (4.4-11.0)
[2020-09-22 15:51] LABS: Glucose Challenge Gest 1H 50g 134 mg/dL (70-140)
== END ==
PROVIDERS: PCP Family Medicine; Referring Provider Obstetrics & Gynecology; Visit Provider Obstetrics & Gynecology
DX: O09.90 Supervision of high risk pregnancy, unspecified, unspecified trimester (principal); Z3A.00 Weeks of gestation of pregnancy not specified; Z13.1 Encounter for screening for diabetes mellitus
CPT/HCPCS: 36415; 82950; 85025

== ENCOUNTER → 2020-11-13 14:12 | Outpatient (CLI) | payer OTHER, SELFPAY ==
[2020-11-06 10:10] VITALS: BMI 28.3
--- NOTE | 2020-11-13 14:12 | US_ITS ---
STUDY: SECOND AND THIRD TRIMESTER OBSTETRICAL ULTRASOUND - LIMITED REASON FOR EXAM: Female, 40 years old. Growth. LMP: 03/07/2020. PRIOR ULTRASOUND: 07/23/2020. TECHNIQUE: Transabdominal TECHNICAL QUALITY: Adequate. FINDINGS: There is a single intrauterine fetus. The fetus is in a cephalic presentation. There is demonstrated cardiac activity with a heart rate of 127 bpm. There is a normal amniotic fluid volume. The largest amniotic fluid pocket measures 3.1 cm. The amniotic fluid index (ALEXANDRA) is 8.85 cm. The placenta is anterior in location and is not low lying. There are Grade 1 placental changes. The cervix not visualized. BIOMETRY: BPD: 8.48 cm: 34 weeks, 1 days HC: 31.52 cm: 35 weeks, 2 days AC: 31.94 cm: 35 weeks, 6 days FL: 6.79 cm: 34 weeks, 6 days Age by LMP: 35 weeks, 6 days. DARYN by LMP: 12/12/2020. age by prior US: 35 weeks, 3 days. DARYN by prior US: 12/15/2020. age by current US: 35 weeks, 2 days. DARYN by current US: 12/16/2020. Estimated weight: 2670 grams, +/- 401 grams, 39 percentile. Gender: Indeterminant US/OB Limited With Biometrics IMPRESSION: 1. Live single intrauterine of 35 weeks, 2 days. DARYN is 12/16/2020. Been adequate interval growth since the prior ultrasound. 2. EFW of 2676 g. 3. Low normal ALEXANDRA of 8.85 cm. 4. Anterior grade 1 placenta. 5. Vertex presentation. Electronically Signed: Joe Waggoner DO at 16:33 EST Tel [phone], Service support ,
== END ==
PROVIDERS: PCP Family Medicine; Referring Provider Nurse Practitioner Women's Health; Visit Provider Nurse Practitioner Women's Health
DX: O09.529 Supervision of elderly multigravida, unspecified trimester (principal); O34.40 Maternal care for other abnormalities of cervix, unspecified trimester; Z98.890 Other specified postprocedural states; Z3A.00 Weeks of gestation of pregnancy not specified
CPT/HCPCS: 76816

== ENCOUNTER → 2020-11-18 15:26 | Outpatient (CLI) | payer OTHER, SELFPAY ==
[2020-11-18 13:03] VITALS: BMI 28.5
== END ==
PROVIDERS: PCP Family Medicine; Visit Provider Obstetrics & Gynecology
DX: O09.90 Supervision of high risk pregnancy, unspecified, unspecified trimester (principal); Z3A.00 Weeks of gestation of pregnancy not specified
CPT/HCPCS: 87081

== ENCOUNTER → 2020-11-20 12:11 | Outpatient (CLI) | payer OTHER, SELFPAY ==
[2020-11-06 10:10] VITALS: BMI 28.3
[2020-11-18 13:03] VITALS: BMI 28.5
--- NOTE | 2020-11-20 12:12 | US_ITS ---
STUDY: OBSTETRICAL ULTRASOUND - BIOPHYSICAL PROFILE REASON FOR EXAM: Female, 40 years old ALEXANDRA . well-being. LMP: 03/07/2020. PRIOR ULTRASOUND: 11/13/2020. TECHNIQUE: Transabdominal TECHNICAL QUALITY: Adequate. FINDINGS: There is a single intrauterine fetus. The fetus is in a cephalic presentation. There is demonstrated cardiac activity with a heart rate of 147 bpm. There is a normal amniotic fluid volume. The largest amniotic fluid pocket measures 4.1 cm. The amniotic fluid index (ALEXANDRA) is 10.5 cm. The placenta is anterior in location and is not low lying. There are Grade 3 placental changes. Age by LMP: 36 weeks, 6 days. DARYN by LMP: 12/12/2020. age by prior US: 36 weeks, 2 days. DARYN by prior US: 12/16/2020. BIOPHYSICAL PROFILE: Breathing Movements (FBM): 2 Gross Body Movements (GBM): 2 Tone (FT): 2 Amniotic Fluid Volume (AFV): 2 TOTAL SCORE: 8 / 8 US/Biophysical Prof W/O Non Stres IMPRESSION: Normal biophysical profile of 8/8. Electronically Signed: Armin Ramos MD at 13:06 EDT , Service support ,
== END ==
PROVIDERS: PCP Family Medicine; Referring Provider Nurse Practitioner Women's Health; Visit Provider Nurse Practitioner Women's Health
DX: O09.90 Supervision of high risk pregnancy, unspecified, unspecified trimester (principal); Z3A.00 Weeks of gestation of pregnancy not specified
CPT/HCPCS: 76819

== ENCOUNTER 2020-11-28 15:30 | Inpatient (IN) | payer OTHER, SELFPAY ==
[2020-11-25 13:24] VITALS: BMI 28.3
[2020-11-28] VITALS (15 sets, daily range): BP systolic 108–133; BP diastolic 57–76; PULSE 72–85; RESP 16; TEMP 36.8–37.6; O2SAT 97–98; BMI 28.2
--- NOTE | 2020-11-28 15:30 | PCM.HPOB.BLA ---
- Problem List (1) Active labor at term Status: Acute (2) 36 weeks gestation of Status: Acute Comment: electronic covid test ordered 11/17/20 (3) ALEXANDRA (amniotic fluid index) borderline low Status: Acute Comment: repeat scan 11/20 (4) AMA (advanced maternal age) multigravida 35+ Status: Acute Qualifiers: Comment: genetic counseling planned NIPT- growth US at 36 weeks (5) Anxiety during Status: Acute Comment: encouraged counseling, ordered zoloft 06/30 stable. 09/22 stable (6) Genital HSV Status: Acute Qualifiers: Comment: Acyclovir at 36 weeks (7) H/O LEEP (loop electrosurgical excision procedure) of cervix complicating Status: Acute Qualifiers: Comment: term delivery afterwards, nl CL (8) History of tetanus, diphtheria, and acellular pertussis booster vaccination (Tdap) Status: Acute Comment: 10/09/20 (9) Iron (Fe) deficiency anemia Status: Acute Qualifiers: Comment: iron, repeat cbc (10) Negative GBS Status: Acute (11) Status: Acute Qualifiers: Comment: NIPT- low risk, declines carrier and NTD at this time, normal anatomy (12) Segmental and somatic dysfunction of cervical region Status: Acute (13) Segmental and somatic dysfunction of lumbar region Status: Acute (14) Segmental and somatic dysfunction of sacral region Status: Acute (15) Segmental and somatic dysfunction of thoracic region Status: Acute (16) Supervision of high risk , antepartum Status: Acute Comment: PRR DARYN 12/12/20 girl Lucia PC Vera Spouse Chad (2 children) (17) h/o covid vaccination Status: Acute Comment: 09/22/20 History and Physical Date of Admission: 11/28/20 Intake Vital Signs 11/25/20 Height 5 ft 9 in 11/25/20 Weight: 192 lb 4 oz 11/25/20 BMI 28.3 11/25/20 BP 110/70 Intake Visit Reasons: 37 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 Is patient in pain?: No Allergies No Known Allergies Allergy (Verified 11/25/20 13:24) Medications vitamin#30 30 mg iron-10 mg iron-folic acid 1 mg-omg3 capsule 1 cap PO DAILY cap 02/26/19 [History Confirmed 11/25/20] omega-3 fatty acids 1,000 mg capsule 1,000 mg PO DAILY 05/07/20 [History Confirmed 11/25/20] sertraline 50 mg tablet 50 mg PO DAILY 06/30/20 [History Confirmed 11/25/20] valacyclovir 500 mg tablet 500 mg PO DAILY #30 tab 11/06/20 [Rx Confirmed 11/25/20] Last Menstral Period: 03/07/20 Zika: Zika virus screening: Negative : No PFSH PFSH Medical History Anxiety (Acute) History of abnormal cervical Pap smear (Acute) Surgical History H/O LEEP (Acute) H/O dilation and curettage (Acute) History of placement of ear tubes (Acute) Family History Mother Cancer of kidney Social History (Updated 11/25/20 @ 13:[address] 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 OB Visit DARYN Calculator Estimated Delivery Date Method Current WG Current Estimate 12/12/20 LMP (Certain) 37w 4d Other Estimates 12/13/20 Ultrasound #1 37w 3d Expected Delivery Route/Plan Labor Preferences- CB/BF classes: no labor support person: Chad labor intervention preferences: Tub!! pain management options preferred: natural cut cord/dad catch: cord : yes PP control planned: vasectomy discussed possible routes of delivery and associated risks: [] special requests: [] Specific Issue/Plans flu vaccine: given tdap vaccine: [] rhogam: na LARC form signed: yes Problem list reviewed and updated with the most current plan of care details and appropriate orders placed. Relevant counseling for the gestational age provided. Continue routine care and follow up unless otherwise noted in visit notes/problem list details Initial Weight: 165 lb Date EGA Weight BP Urine Prot Glucose FHR FuHt Pres Dilation Effaced St Visit Note 05/07/20 8w 5d 168 lb (+3 lb) 104/62 160 SM- CRL 1.9mm cons with lmp 06/04/20 12w 5d 169 lb 4 oz (+4 lb 4 oz) 106/74 Negative Negative 153 GP - no cramping or bleeding. Reviewed genetic testing results. It's a girl! Anatomy scan ordered. 06/30/20 16w 3d 171 lb 4 oz (+6 lb 4 oz) 90/60 Negative Negative 156 MH-No VB, LOF. Has not had initial US to check CL-ordered. 07/28/20 20w 3d 177 lb (+12 lb) 110/60 150 20 SM- no vb lof some fm no regular ctx 08/27/20 24w 5d 178 lb 6 oz (+13 lb 6 oz) 115/68 Negative Negative 150 25 SM- no vb lof good fm no regular ctx 09/22/20 28w 3d 182 lb 6 oz (+17 lb 6 oz) 120/70 Negative 1000 g/dL 148 28 MH-No VB,LOF. No CTX. Good FM. Larc. 28 wk labs pending. Tdap next visit. 09/29/20 29w 3d 183 lb 4 oz (+18 lb 4 oz) 128/64 Negative Negative 150 MH-work in for decreased movement-reactive NST 10/06/20 30w 3d 187 lb (+22 lb) 104/62 Negative Negative 145 31 SM- no vb lof good fm no regular ctx discussed preferences 10/21/20 32w 4d 188 lb (+23 lb) 100/68 Negative Negative 150 32 Cephalic GP - no LOF, VB, DFM, ctx. Confirmed vtx on portable US because was concerned about being breech. 11/06/20 34w 6d 192 lb (+27 lb) 110/64 Negative Negative 140 32 Cephalic SM- no vb lof good fm no regular ctx. recommend growth US 11/18/20 36w 4d 193 lb 6 oz (+28 lb 6 oz) 108/70 Negative Negative 145 36 Cephalic 1 40 -2 GP - no LOF, VB, DFM, ctx. GBS collected today. Discussed low normal ALEXANDRA - having repeat this week. 11/25/20 37w 4d 192 lb 4 oz (+27 lb 4 oz) 110/70 Negative Negative 130 37 Cephalic GP - no LOF, VB, DFM, ctx. Discussed COVID testing. ACOG First Trimester First Trimester: Desire for , Alcohol, Tobacco Cessation, Illicit/Recreational Drug/Substance Use, Intimate Partner Violence, Barriers to care, Unstable Housing, Communication Barriers, Environmental/Work Hazards, Anticipated Course of Care, Toxoplasmosis Precations, Use of Any medications, Sexual activity, Exercise, Dental Care, Sauna/Hot tub use, Seat Belt use, Childbirth classes/Hospital facilities, Travel, Indications for US and Screening for Aneuploidy; discussed Second Trimester Second Trimester: Signs and Symptoms of Labor, Selecting a care provider, Reproductive Life Planning, Care Planning, Depression/Anxiety and Intimate Partner Violence; discussed Tobacco Cessation Third Trimester Third Trimester: Pain Management Plans, Labor support person(s) and Infant Feeding No Diagnostics Diagnostics Diagnostics Glucose 1 Hr 50 gm 134 mg/dL (70-140) 09/22/20 Hgb 10.7 g/dL (12.0-15.0) L 09/22/20 Hct 32.5 % (37-47) L 09/22/20 Details: HIV: Urine Culture: Sequential Screen: NIPT Screen: ROS Const Reports system reviewed and no additional complaints, except as docu Eyes Reports system reviewed and no additional complaints, except as docu ENT Reports system reviewed and no additional complaints, except as docu Card Reports system reviewed and no additional complaints, except as docu Resp Reports system reviewed and no additional complaints, except as docu GI Reports system reviewed and no additional complaints, except as docu Reports system reviewed and no additional complaints, except as docu, Denies abnormal vaginal bleeding, Denies painful urination, Denies pelvic pain, Denies vaginal discharge, Denies vaginal odor, Denies vaginal itching Musc Reports system reviewed and no additional complaints, except as docu Skin/Breast Reports system reviewed and no additional complaints, except as [facility] Neuro Yes system reviewed and no additional complaints, except as [facility] Psych Reports system reviewed and no additional complaints, except as [facility] Endo Reports system reviewed and no additional complaints, except as docu Exam Const General: cooperative, healthy appearing, comfortable, no acute distress, well developed, well groomed Nutritional Appearance: average body habitus, well nourished Orientation: alert, awake, oriented x3 HENWV Head: normal to inspection, normocephalic, atraumatic Eyes Pupils: PERRL, accommodation normal Resp Effort & Inspection: normal respiratory effort, able to speak in complete sentences, symmetric chest movement Cardio Rate: regular rate GI Palpation: soft, no guarding, no masses, nontender Skin General: no rashes or lesions noted, elasticity normal, turgor normal Neuro General: alert, awake, oriented x3 Cranial Nerves: CN's II-XI intact bilaterally, sense of smell intact, PERRL, accommodation normal, EOM intact bilaterally Speech: speech normal Gait: normal gait Psych Appearance: grossly normal, well kempt Mental Status: mental status grossly normal Mood: congruent mood Affect: normal affect Speech and Movement: speech and movement normal Attitude: cooperative Thought Process: normal Thought Content: normal Judgment: judgment good Results POC Urinalysis 2 Dip (Clinic) Office Urine Glucose Negative Last Edit by Clover Murphy on 11/25/20 13:45 Office Urine Protein Negative Last Edit by Clover Murphy on 11/25/20 13:45 Assessment & Plan Problems 1. Negative GBS 2. 36 weeks gestation of Z3A.36 electronic covid test ordered 11/17/20 3. ALEXANDRA (amniotic fluid index) borderline low O28.8 repeat scan 11/20 4. History of tetanus, diphtheria, and acellular pertussis booster vaccination (Tdap) Z92.29 10/09/20 5. Iron (Fe) deficiency anemia D50.9 iron, repeat cbc 6. h/o covid vaccination 09/22/20 7. Anxiety during O99.340; F41.9 encouraged counseling, ordered zoloft 06/30 stable. 09/22 stable 8. Herpes simplex vulvovaginitis A60.04 Acyclovir at 36 weeks 9. 37 weeks gestation of Z3A.37 NIPT- low risk, declines carrier and NTD at this time, normal anatomy 10. Supervision of high risk , antepartum O09.90 PRR DARYN 12/12/20 girl Lucia [place] Spouse Chad (2 children) 11. Multigravida of advanced maternal age in third trimester O09.523 genetic counseling planned NIPT- growth US at 36 weeks 12. History of loop electrosurgical excision procedure (LEEP) of cervix affecting in third trimester O34.43 term delivery afterwards, nl CL Patient presents IAL, plan expectant management for , pitocin/AROM PRN if needed. Pain management: desires minimal intervention with tub in labor GBS negative. Management of any complications: none I have reviewed the [facility] and made any clinically relevant updates. UPDATE- I have seen the patient and performed any clinically relevant updates to the history and physical exam. Lynn Ward MD
[2020-11-28] MEDS: Oxytocin 10 UNITS/ML Vial IM (16:58)
[2020-11-28] MEDS: Acetaminophen 500 MG Tablet PO (18:22)
--- NOTE | 2020-11-28 18:25 | PCM.OPRPT ---
Problem List (1) Active labor at term Status: Acute (2) 36 weeks gestation of Status: Acute Comment: electronic covid test ordered 11/17/20 (3) ALEXANDRA (amniotic fluid index) borderline low Status: Acute Comment: repeat scan 11/20 (4) AMA (advanced maternal age) multigravida 35+ Status: Acute Qualifiers: Comment: genetic counseling planned NIPT- growth US at 36 weeks (5) Anxiety during Status: Acute Comment: encouraged counseling, ordered zoloft 06/30 stable. 09/22 stable (6) Genital HSV Status: Acute Qualifiers: Comment: Acyclovir at 36 weeks (7) H/O LEEP (loop electrosurgical excision procedure) of cervix complicating Status: Acute Qualifiers: Comment: term delivery afterwards, nl CL (8) History of tetanus, diphtheria, and acellular pertussis booster vaccination (Tdap) Status: Acute Comment: 10/09/20 (9) Iron (Fe) deficiency anemia Status: Acute Qualifiers: Comment: iron, repeat cbc (10) Negative GBS Status: Acute (11) Status: Acute Qualifiers: Comment: NIPT- low risk, declines carrier and NTD at this time, normal anatomy (12) Segmental and somatic dysfunction of cervical region Status: Acute (13) Segmental and somatic dysfunction of lumbar region Status: Acute (14) Segmental and somatic dysfunction of sacral region Status: Acute (15) Segmental and somatic dysfunction of thoracic region Status: Acute (16) Supervision of high risk , antepartum Status: Acute Comment: PRR DARYN 12/12/20 girl Lucia PC Lacie Spouse Chad (2 children) (17) h/o covid vaccination Status: Acute Comment: 09/22/20 Vaginal Delivery Maternal Presentation: Active Labor 40-year-old G2, P1 at 38 weeks gestation presents in active labor. Patient made rapid cervical change from 4 cm to complete dilation and began to feel the urge to push. Amniotic Membrane Rupture Type: Spontaneous Amniotic Fluid Description: Clear Final DARYN: 12/12/20 Gestational age: 38 Weeks and 0 Days Date of Procedure: 11/28/20 Pre-Operative Diagnosis: Term , active labor Post-Operative Diagnosis: Same, precipitous labor Surgery/ Procedure Performed: Spontaneous Vaginal Delivery Type of Anesthesia: Local with 1% lidocaine Description of Procedure: Patient began pushing and delivered the head in the TABITHA presentation. The head was delivered atraumatically and no nuchal cord was noted. The anterior and posterior shoulders delivered without complication followed by the rest of the and the was placed on the maternal abdomen. Delayed cord clamping was employed for approximately 60 seconds. Cord was clamped and cut and gentle traction was applied to the cord and the placenta delivered spontaneously immediately following it was noted to be intact with three-vessel cord. The perineum and vagina were inspected and a right labial laceration was noted and repaired in the standard fashion using 3-0 Vicryl rapide suture after numbing the area with 20 cc of 1% lidocaine. EBL was 150 cc. Patient and infant tolerated delivery well. Presentation: Vertex, TABITHA Placental Delivery Description: Spontaneous Placenta Disposition: [facility] Cord Vessel Description: 3 Vessels Cord Entanglement: None Estimated Blood Loss: 150 Infant A gender: Female Episiotomy Description: None Laceration: Periurethral Extnsion/lac - Right labial Medications given after delivery: - - IM Pitocin Complications: None Multi Select Codes - Urinary/Genital Urinary/Genital CPT Codes: 30276 Vaginal Delivery [facility]
--- NOTE | 2020-11-28 18:29 | DCINST_ITS ---
Discharge Diet: No Restrictions Discharge Activity: Return to Normal Activity, May not drive while taking narcotic pain medications., May Shower May resume sexual activity in: 4-6 weeks Additional Activity Instructions:: Nothing in the vagina for 4-6 weeks. You may return to work/school in 6 weeks. Call your doctor if your incision/area has: Continuous Slow Oozing, Sudden Increased Bleeding, Increased Pain/ Swelling, Increased Redness, Foul Smelling Discharge Additional Instructions: If you experience any of the following, contact your healthcare provider. * Bleeding that soaks a pad every hour for 2 hours * Fever 100.4 or higher * Unrelieved incision or abdominal pain * Swelling, redness, discharge or bleeding from your incision or episiotomy site * Your incision begins to separate * Problems urinating (including inability to urinate or burning while urinating). * Visual changes * Severe headache * Flu-like symptoms * Pain or redness in one of both of your breasts * Pain, warmth, tenderness or swelling in your legs, especially the calf area * Frequent nausea and vomiting * Symptoms of depression or anxiety If you experience any of the following, call 911 or go to the nearest Emergency Room. * Chest pain * Problems breathing * Seizure activity * Partial or complete paralysis of a body part, slurred speech, weakness or drooping of the face, or a sudden inability to walk or hold your balance Allergies/Adverse Reactions: Allergies No Known Allergies Allergy (Verified 11/28/20 14:33) Medications to take at Discharge vitamin#30 30 mg iron-10 mg iron-folic acid 1 mg-omg3 capsule 1 cap PO DAILY cap 02/26/19 omega-3 fatty acids 1,000 mg capsule 1,000 mg PO DAILY 05/07/20 sertraline 50 mg tablet 50 mg PO DAILY 06/30/20 valacyclovir 500 mg tablet 500 mg PO DAILY #30 tab 11/06/20 When: Call to make an appointment with your doctor in 6 weeks. If you had elev ated Blood Pressure or 4th degree laceration you will need to be seen in 2 weeks. Primary Care Physician: Jatin Smith DO [Primary Care Provider] - Test Results: Test results from this visit will be discussed in further detail at your follow- up appointment, if applicable.
[2020-11-28 19:23] LABS: Hematocrit 36.1 % (37-47); Hemoglobin 12.1 g/dL (12.0-15.0); Mean Corp Hgb Conc 33.5 g/dL (32-36); Mean Corpuscular Hgb 29.7 pg (27.0-32.0); Mean Corpuscular Volume 88.7 fL (81-99); Mean Platelet Vol. 11.6 fl (6.2-12.0); Platelet Count 209 K/mm3 (150-450); RBC Distribution Width CV 12.8 % (11.6-14.6); RBC Distribution Width SD 41.7 fl (35.1-43.9); Red Blood Count 4.07 M/mm3 (4.2-5.4); White Blood Count 17.9 K/mm3 (4.4-11.0)
[2020-11-28] MEDS: Naproxen 250 MG Tablet 500 MG PO (23:48)
[2020-11-29 04:24] VITALS: BP 106/58; PULSE 68; RESP 18; TEMP 36.9
[2020-11-29] MEDS: Acetaminophen 500 MG Tablet 1000 MG PO (05:36)
--- NOTE | 2020-11-29 08:08 | PCM.PN.OB ---
Patient Problems: Active and Suspected Problems (Last Reviewed 11/25/20 @ 13:24 by Clover Murphy) Active labor at term (Acute) Negative GBS (Acute) Segmental and somatic dysfunction of sacral region (Acute) Segmental and somatic dysfunction of lumbar region (Acute) Segmental and somatic dysfunction of thoracic region (Acute) Segmental and somatic dysfunction of cervical region (Acute) 36 weeks gestation of (Acute) electronic covid test ordered 11/17/20 ALEXANDRA (amniotic fluid index) borderline low (Acute) repeat scan 11/20 History of tetanus, diphtheria, and acellular pertussis booster vaccination (Tdap) (Acute) 10/09/20 Iron (Fe) deficiency anemia (Acute) iron, repeat cbc h/o covid vaccination (Acute) 09/22/20 Anxiety during (Acute) encouraged counseling, ordered zoloft 06/30 stable. 09/22 stable Genital HSV (Acute) Acyclovir at 36 weeks (Acute) NIPT- low risk, declines carrier and NTD at this time, normal anatomy Supervision of high risk , antepartum (Acute) PRR DARYN 12/12/20 girl Lucia PC Vera Spouse Chad (2 children) AMA (advanced maternal age) multigravida 35+ (Acute) genetic counseling planned NIPT- growth US at 36 weeks H/O LEEP (loop electrosurgical excision procedure) of cervix complicating (Acute ~2014) term delivery afterwards, nl CL Subjective: Patient doing well without complaints. Tolerating PO. Ambulating and voiding without difficulty. Breast feeding well. Denies chest pain, shortness of breath, calf pain/swelling, fevers, chills, lightheadedness. - Physical Exam Vitals/I&O's: Vital Signs Temp Pulse Resp BP Pulse Ox 98.5 F 68 18 106/58 L 98 11/29/20 04:24 11/29/20 04:24 11/29/20 04:24 11/29/20 04:24 11/28/20 23:45 Oxygen Delivery Method Room Air Weight: 191 lb Body Mass Index (BMI) 28.2 General: Alert, Oriented x3, Cooperative, No apparent distress, Well developed, Well nourished HEENT: Atraumatic, PERRLA, EOMI, Normocephalic Neck: Supple, No JVD Lungs: Normal air movement Cardiovascular: Regular rate, Regular Rhythm Abdomen: Soft, Non Tender, Non-Distended, - - fundus firm Extremities: No edema, No Calf Tenderness Neurological: Cranial nerves II-XII grossly intact, Neuro grossly intact Psych/Mental Status: Normal Affect, Appropriate Laboratory Results 11/28/20 18:45: Blood Type A POSITIVE, Antibody Screen NEGATIVE 11/28/20 18:45: WBC 17.9 H, RBC 4.07 L, Hgb 12.1, Hct 36.1 L, MCV 88.7, MCH 29.7, MCHC 33.5, RDW Std Deviation 41.7, RDW Coeff of Neal 12.8, Plt Count 209, MPV 11.6 Current Medications Acetaminophen (Acetaminophen 500 Mg Tablet) 1,000 mg PO Q8H PRN PRN PRN Reason: Pain Score 1-3 Last Admin: 11/29/20 05:36 Dose: 1,000 mg Documented by: Bisacodyl (Bisacodyl 10 Mg Suppository) 10 mg RC UD PRN PRN Reason: If no BM Dibucaine (Dibucaine 30 Gm Tube) 1 applic TOPICAL TID PRN PRN; Protocol PRN Reason: Discomfort Hydrocortisone (Hydrocortisone 2.5% Crm) 1 applic TOPICAL TID PRN PRN; Protocol PRN Reason: Discomfort Methylergonovine Maleate (Methylergonovine 0.2 Mg/Ml Ampul) 0.2 mg IM X1 PRN PRN Reason: Excess bleeding/uterine atony Naproxen (Naproxen 250 Mg Tablet) 500 mg PO Q8H PRN PRN PRN Reason: Pain Score 1-3 Last Admin: 11/28/20 23:48 Dose: 500 mg Documented by: Ondansetron HCl (Ondansetron 4 Mg/2 Ml Vial) 4 mg IV Q4H PRN PRN PRN Reason: Nausea Oxycodone HCl (Oxycodone 5 Mg Tablet) 5 - 10 mg PO Q4H PRN PRN PRN Reason: Pain Score 4-10 Multivit/Folic Acid/Iron ( Vits Tablet) 1 tablet PO DAILY@1200 ELIZABETH Senna/Docusate Sodium (Senna/Docusate Sodium 1 Tablet) 1 - 2 tablet PO DAILY PRN PRN PRN Reason: Constipation Sertraline HCl (Sertraline 50 Mg Tablet) 50 mg PO DAILY [facility] Simethicone (Simethicone 80 Mg Tablet) 80 mg PO PCHS PRN PRN Reason: Indigestion/Stomach pain Sodium Chloride (0.9% Saline Lock 10 Ml Syringe) 5 - 15 ml IV UD PRN PRN Reason: SALINE FLUSH Medical Necessity - Tobacco Use Smoking Status: Former smoker Assessment/Plan All Active Problems (Last Reviewed 11/25/20 @ 13:24 by Clover Murphy) Active labor at term (Acute) Negative GBS (Acute) Segmental and somatic dysfunction of sacral region (Acute) Segmental and somatic dysfunction of lumbar region (Acute) Segmental and somatic dysfunction of thoracic region (Acute) Segmental and somatic dysfunction of cervical region (Acute) 36 weeks gestation of (Acute) ALEXANDRA (amniotic fluid index) borderline low (Acute) History of tetanus, diphtheria, and acellular pertussis booster vaccination (Tdap) (Acute) Iron (Fe) deficiency anemia (Acute) h/o covid vaccination (Acute) Anxiety during (Acute) Genital HSV (Acute) (Acute) Supervision of high risk , antepartum (Acute) AMA (advanced maternal age) multigravida 35+ (Acute) H/O LEEP (loop electrosurgical excision procedure) of cervix complicating (Acute ~2015) Cervical dysplasia (Resolved) Conjunctivitis (Resolved) Missed (Resolved) Mother currently breast-feeding (Resolved) s/p PPD # 1 1. routine post delivery care 2. breast feeding- support given 3. rh positive 4. rubella immune
[2020-11-29 08:29] VITALS: BP 120/68; PULSE 81; TEMP 37
[2020-11-29 08:30] VITALS: BP 120/68; PULSE 81; RESP 16; TEMP 36.9
[2020-11-29] MEDS: Prenatal Vits Tablet 1 TABLET PO (10:39)
[2020-11-29] MEDS: Sertraline 50 MG Tablet PO (10:39)
[2020-11-29 13:14] VITALS: BP 115/69; PULSE 80; RESP 16; TEMP 36.7
[2020-11-29] MEDS: Naproxen 250 MG Tablet 500 MG PO (15:31)
[2020-11-29 15:33] VITALS: BP 116/62; PULSE 69; TEMP 36.9
[2020-11-29 15:34] VITALS: BP 116/62; PULSE 69; RESP 18; TEMP 36.9
== END 2020-11-29 19:05 | disposition home or self-care (01) | DRG 806 ==
LOC: WPOUT 15:32 → WP 15:32
PROVIDERS: Admitting Provider Obstetrics & Gynecology; PCP Family Medicine; Visit Provider Obstetrics & Gynecology
DX: O99.02 Anemia complicating childbirth (principal); O98.32 Other infections with a predominantly sexual mode of transmission complicating childbirth; Z37.0 Single live birth; O62.3 Precipitate labor; Z3A.38 38 weeks gestation of pregnancy; A60.09 Herpesviral infection of other urogenital tract; F41.9 Anxiety disorder, unspecified; O99.344 Other mental disorders complicating childbirth; Z79.899 Other long term (current) drug therapy; D50.9 Iron deficiency anemia, unspecified; M99.04 Segmental and somatic dysfunction of sacral region; M99.03 Segmental and somatic dysfunction of lumbar region; M99.02 Segmental and somatic dysfunction of thoracic region; Z87.891 Personal history of nicotine dependence; M99.01 Segmental and somatic dysfunction of cervical region; O70.0 First degree perineal laceration during delivery
CPT/HCPCS: 59025; 59050; 85027; 86850; 86900; 86901; 99218; G0378

== ENCOUNTER → 2021-03-09 15:32 | Outpatient (CLI) | payer OTHER, SELFPAY ==
[2021-01-06 13:54] VITALS: BMI 28.2
--- NOTE | 2021-03-09 15:33 | VDLE_ITS ---
Reason For Study: Pain in LLE Procedure LEFT This is a venous duplex using B-mode, color GSV is normal. flow and spectral Doppler. CFV is compressible, spontaneous, phasic, Exam performed in department. competent, and demonstrates normal A preliminary report was called and/or faxed augmentation. to [facility]. FV is compressible, spontaneous, phasic, competent and demonstrates normal augmentation. POP V is compressible, spontaneous, phasic, competent and demonstrates normal augmentation. T/P Trunk is compressible. PTV is compressible. LT PerV is compressible. Large nonvascularized structure noted in the left popliteal space-mid calf measuring approximently 4.18 x 2.67 cm. VL/Venous Duplex US, Unilateral Interpretation Summary There is no evidence of left lower extremity deep vein thrombosis. Left great s aphenous vein appears patent and compressible segmentally. Large complex nonvascular structure left p opliteal space measuring 4.18 x 2.67 cm. Clinical correlation would be appropriate Ordering Physician: Beck Osorio Referring Physician: Jatin Smith Performed By: Tatum Cheema RVT
== END ==
PROVIDERS: PCP Family Medicine; Referring Provider Physician Assistant; Visit Provider Physician Assistant
DX: M79.662 Pain in left lower leg (principal)
CPT/HCPCS: 93971

== ENCOUNTER → 2021-05-03 13:39 | Outpatient (CLI) | payer OTHER, SELFPAY ==
--- NOTE | 2021-05-03 13:46 | MRI_ITS ---
STUDY: MRI LEFT KNEE REASON FOR EXAM: Posterior left knee pain extending into the calf for 3 years. TECHNIQUE: Standardized fat and water weighted pulse sequences were obtained in all 3 orthogonal planes. COMPARISON: MRI images 06/04/2019. FINDINGS: Normal medial meniscus. There is low-grade chondromalacia of the medial femoral condyle (proton-density sagittal image 14). Normal medial femoral condyle and tibial plateau. There is mild periligamentous inflammation medial collateral ligament (T2 coronal image 20). Normal distal semimembranosus, gracilis and semitendinosus tendons. Normal lateral meniscus. Normal hyaline cartilage of the lateral femorotibial compartment. Normal lateral femoral condyle and tibial plateau. Normal proximal tibiofibular articulation. Normal lateral collateral (fibular) ligament. Normal popliteus tendon. Normal biceps femoris tendon. Normal anterior cruciate ligament (ACL). Normal posterior cruciate ligament (PCL). Normal congruent patellofemoral articulation. There is a small chondral tear of the lateral patellar facet (T2 axial image 10). Normal medial and lateral patellar retinaculum. Normal visualized quadriceps tendon. Normal patellar tendon. Normal Hoffa''s fat pad. There is a small to moderate-sized joint effusion. There is a popliteal cyst measuring more than 11 cm in length, the distal portion extends into the proximal calf along the myocutaneous fascial plane of the medial gastrocnemius, not completely in the [id number], with extravasation of fluid (T2 sagittal images 2-12). The otherwise visualized osseous structures are unremarkable. 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 Small chondral tear of the lateral patellar facet. Mild periligamentous inflammation of the medial collateral ligament. Joint effusion. Popliteal cyst extending into the calf with extravasation of fluid. Electronically Signed: Cruzito Stuart MD at 7:26 EDT Tel , Service support ,
== END ==
PROVIDERS: PCP Family Medicine; Referring Provider Orthopaedic Surgery; Visit Provider Orthopaedic Surgery
DX: M17.12 Unilateral primary osteoarthritis, left knee (principal)
CPT/HCPCS: 73721

== ENCOUNTER 2021-07-15 15:00 | Outpatient (RCR) | payer OTHER, SELFPAY ==
--- NOTE | 2021-05-24 14:22 | HP.PTEVAL ---
Patient's Visit Information MILLY DICKERSON is a 41 year old F referred to Physical Therapy by Dr. Cayetano Hillman DO with a diagnosis of L knee OA and cyst. Date of Evaluation: 05/24/21 Physical Therapist: Dwayne Hercules, DPT, OCS, CSCS - Visit Plan Frequency: 2-3x /Week Duration: 4-6 Weeks Plan: 2-3x/week for 4-6 weeks as needed starting at 3 weeks for: ensure ROM improving wiht home ROM given today in L knee. rolout and stretch L ITB, hip flexor and quad, HS. strengthen NWB to start L hip with SLRs, clamshells, bridging, and progressing as toelrated to inchworms, squats, RDL, band hip rotations. 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 - Subjective L knee hurts. 3 years agosomething in lower leg popped and swelled up and painful. it was a Bakers cyst per MRI at that point. Been dealing with pain since then and had had 3 bad incidence of popping. Then got another MRI with 11 cm Bakers cyst. Cannot find why it is happeinng as she just has slight arthrits and no meniscal tear on MRI. Scope may be appropriate but is not gonna happen. I know I am weak and tight. Has been doing some exercises and legs feels better. has been doing walks with band, bridges, foam rolling ITB into lateral hip, IR feels weak. Has no problems with LB other than some chronic soreness. When this flares up her gait is off and ROM is limited. That happened 2.5 months and got cortisone shot prior which was really helpful. \Makes it hard to get all done at home as it slows her down. 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 sleep is not a problem but it can be uncomfy at night. - Pain L knee pain Pain Intensity (Out of 10): 0 Pain Intensity Range: 2 Comment: medial, described as achy - Objective Walks normal today without antalgia. slight hesitancy L leg on seps but reciprocal without rail however doesnt feel right on left knee and achy. Trasnfers are I. AROM L knee-2 to 120, R knee 0-150, hesitant end range L knee flexion and extensionn. PROM L knee 0 to 122 self limited due to hesitancy. Hip AROM and ankle AROM WFL B. tightness present in quad L, hip flexor B, HS minimally L. reflexes 2/3 patella and achilles. Strength L HS 4- and R 4, quad 4 L and 4+ R, hip rotations 4-, felxion 4 B with tendency to IR., abduction 4- B, ext 3+ B at hips. Ankles are 5/5. L leg slightly shorter vs R but heel lift in place. Sensation LE WNL to gross light touch. Palpable cyst posterior L knee mildly tender with mild tenderness aso medial knee joint line L. - ant drawer. - varus and valgus. - bounce home. - patellar grind. LB aROM WFL without pain. - Balance/Special Test Scores Lower Extremity Functional Score: 54 - Goals Goal 1:: Pain L knee with class 0/10 Goal Time Frame: 4-6 Weeks Goal 2:: Pt I in appropriate ex to limit futur eproblems in L knee Goal Time Frame: 4-6 Weeks Goal 3:: LEFS score60/80 Goal Time Frame: 4-6 Weeks - Rehabilitation Potential Physical Therapy Diagnosis: L knee achiness from cyst Rehabilitation Potential: Fair - Anticipated Interventions Patient/Client Instruction: Educate patient on: Condition, Plan of Care For the Purpose of:: To decrease pain, To increase ROM, To improve muscle performance and motor function, To increase tolerance to activity/condition/position Therapeutic Exercise to Include: Strength training, Flexibilty training, Passive ROM, Active ROM For the Purpose of:: To decrease pain, To increase ROM, To improve muscle performance and motor function, To increase tolerance to activity/condition/position, To improve ability of physical actions for home/community/work/leisure Manual Therapy Techniques to Include: Mobilization, Passive ROM, Soft tissue mobilization For the Purpose of:: To decrease pain, To increase ROM TENS: Yes Cryotherapy (ice pack, ice massage): Yes For the Purpose of:: To decrease pain, To decrease swelling/inflammation, To increase ROM Thank you for the opportunity to evaluate your patient. For Medicare and Medicare HMO plans, please review the plan of care and approve it. It will need to be FAXED BACK to us at [phone] for Medicare purposes. For Medicare only, by signing this I certify the plan of care. Please let me know if there are questions or concerns regarding this plan of care. Physician Signature: Date:
--- NOTE | 2021-07-15 15:00 | HP.PTEVAL_ITS ---
Patient's Visit Information MILLY DICKERSON is a 41 year old F referred to Physical Therapy by Dr. Cayetano Hillman DO with a diagnosis of L knee OA and cyst. Date of Evaluation: 05/24/21 Physical Therapist: Dwayne Hercules, DPT, OCS, CSCS - Visit Plan Frequency: 2-3x /Week Duration: 4-6 Weeks Plan: d/c to regular exercises. - Subjective L knee hurts. 3 years agosomething in lower leg popped and swelled up and painful. it was a Bakers cyst per MRI at that point. Been dealing with pain since then and had had 3 bad incidence of popping. Then got another MRI with 11 cm Bakers cyst. Cannot find why it is happeinng as she just has slight arthrits and no meniscal tear on MRI. Scope may be appropriate but is not gonna happen. I know I am weak and tight. Has been doing some exercises and legs feels better. has been doing walks with band, bridges, foam rolling ITB into lateral hip, IR feels weak. Has no problems with LB other than some chronic soreness. When this flares up her gait is off and ROM is limited. That happened 2.5 months and got cortisone shot prior which was really helpful. \Makes it hard to get all done at home as it slows her down. 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 sleep is not a problem but it can be uncomfy at night. - Pain L knee pain Pain Intensity (Out of 10): 0 Pain Intensity Range: 2 Comment: medial, described as achy - Objective Walks normal today without antalgia. slight hesitancy L leg on seps but reciprocal without rail however doesnt feel right on left knee and achy. Trasnfers are I. AROM L knee-2 to 120, R knee 0-150, hesitant end range L knee flexion and extensionn. PROM L knee 0 to 122 self limited due to hesitancy. Hip AROM and ankle AROM WFL B. tightness present in quad L, hip flexor B, HS minimally L. reflexes 2/3 patella and achilles. Strength L HS 4- and R 4, quad 4 L and 4+ R, hip rotations 4-, felxion 4 B with tendency to IR., abduction 4- B, ext 3+ B at hips. Ankles are 5/5. L leg slightly shorter vs R but heel lift in place. Sensation LE WNL to gross light touch. Palpable cyst posterior L knee mildly tender with mild tenderness aso medial knee joint line L. - ant drawer. - varus and valgus. - bounce home. - patellar grind. LB aROM WFL without pain. - Balance/Special Test Scores Lower Extremity Functional Score: 68 - Goals Goal 1:: Pain L knee with class 0/10 Goal Time Frame: 4-6 Weeks Goal 2:: Pt I in appropriate ex to limit futur eproblems in L knee Goal Time Frame: 4-6 Weeks Goal 3:: LEFS score60/80 Goal Time Frame: 4-6 Weeks - Rehabilitation Potential Physical Therapy Diagnosis: L knee achiness from cyst Rehabilitation Potential: Fair - Anticipated Interventions Patient/Client Instruction: Educate patient on: Condition, Plan of Care For the Purpose of:: To decrease pain, To increase ROM, To improve muscle performance and motor function, To increase tolerance to activity/condition/posi tion Therapeutic Exercise to Include: Strength training, Flexibilty training, Passive ROM, Active ROM For the Purpose of:: To decrease pain, To increase ROM, To improve muscle performance and motor function, To increase tolerance to activity/condition/position, To improve ability of physical actions for home/community/work/leisure Manual Therapy Techniques to Include: Mobilization, Passive ROM, Soft tissue mobilization For the Purpose of:: To decrease pain, To increase ROM TENS: Yes Cryotherapy (ice pack, ice massage): Yes For the Purpose of:: To decrease pain, To decrease swelling/inflammation, To increase ROM Thank you for the opportunity to evaluate your patient. For Medicare and Medicare HMO plans, please review the plan of care and approve it. It will need to be FAXED BACK to us at [phone] for Medicare purposes. For Medicare only, by signing this I certify the plan of care. Please let me know if there are questions or concerns regarding this plan of care. Physician Si gnature: Date:
--- NOTE | 2021-09-17 08:13 | HP.PTDCSUM ---
It has been my pleasure to treat MILLY DICKERSON referred by Dr. Cayetano iHllman DO, with the diagnosis of L knee OA and cyst for a total of 11 visit(s). Discharge Date: 07/15/21 Please see the following information for a summary of their discharge status. Subjective: Knee is up and down. Exercises really seem to help with pain. Cyst persists but is better. Steps and body overall feeling L knee pain Pain Intensity (Out of 10): 0 % Improvement: 80 Objective/Function: Full AROM without pain. Still palpable bakers cyst posterior. 5/5 strength knee. Overall doing well with compliance and then gets away from ex and worsens a bit but no pain. Goal 1:: Pain L knee with class 0/10 Goal Progress: Progressing, with complia Goal 2:: Pt I in appropriate ex to limit futur eproblems in L knee Goal Progress: Goal Met Goal 3:: LEFS score60/80 Goal Progress: Goal Met Plan: d/c to regular exercises. If there are questions or concerns regarding this patient's physical therapy, please feel free to call me at [phone]. Thank you for the referral of this patient. Sincerely, Dwayne Hercules, DPT, OCS, CSCS Balance/Gait/Functional tests - Balance/Special Test Scores Lower Extremity Functional Score: 68
== END 2021-07-15 19:00 | disposition home or self-care (01) ==
LOC: PT 15:00
PROVIDERS: PCP Family Medicine; Referring Provider Student in an Organized Health Care Education/Training Program; Visit Provider Student in an Organized Health Care Education/Training Program
DX: M71.22 Synovial cyst of popliteal space [Baker], left knee (principal); M17.12 Unilateral primary osteoarthritis, left knee; M94.262 Chondromalacia, left knee
CPT/HCPCS: 97110; 97161; 97164; 97530